=== PATIENT | female | born 1990 | race Hispanic/Latino ===

== ENCOUNTER 2017-03-28 08:16 | Outpatient (CLI) | payer BC ==
--- NOTE | 2017-03-28 09:13 | Ultrasound Report ---
RIGHT BREAST ULTRASOUND: 03/28/17 08:16:00 CLINICAL: Right breast lumps. The patient says that she has had an ultrasound and was told that she has 2 probably benign right breast lumps. However, no images or reports are available for comparison. FINDINGS: Ultrasound of the right breast demonstrated an oval solid circumscribed subareolar mass at 12 o'clock measuring 1.2 x 0.5 x 0.9 cm. It is hypoechoic and demonstrates mild posterior enhancement. A similar oval solid hypoechoic mass at 12 o'clock subareolar has less well-defined margins and measures 1.0 x 0.4 x 1.1 cm. IMPRESSION: 2 probably benign solid subareolar breast masses at 12 o'clock. Recommend six month followup right breast ultrasound to reassess for size and growth. BI-RADS 3 - - Probably Benign
== END 2017-03-28 08:17 | disposition home or self-care (01) ==
LOC: SPVWC 08:16
PROVIDERS: ATTEND Surgery
DX: N63 Unspecified lump in breast (principal)